=== PATIENT | male | born 1965 | race Caucasian/White ===

== ENCOUNTER 2019-12-10 13:43 | Emergency (ER) | payer SELFPAY ==
[~2019-12-10] VITALS: Ht 167.6 cm; Wt 83.9 kg
[2019-12-10 14:10] VITALS: BP 111/66
[2019-12-10] MEDS ORDERED: ORPHENADRINE CITRATE 60 MG/2 ML VIAL. IM ONE (14:15)
[2019-12-10] MEDS ORDERED: KETOROLAC 60 MG/2 ML VIAL. IM ONE (14:15)
--- NOTE | 2019-12-10 14:19 | PHYS DOC ---
Adult General Chief Complaint Chief Complaint: BACK PAIN OR INJURY [facility] HPI Patient is a 54-year-old male who presents with complaint of acute low back pain with injury occurred yesterday after bending over and picking up a log. Patient states he felt something pop in his back and since that time he has had pain that radiates down into his right buttock and into the right leg, down to the knee. Patient denies any loss of bowel or bladder control.[] Review of Systems Review of Systems Constitutional: Denies fever or chills [] Respiratory: Denies cough or shortness of breath [] Cardiovascular: No additional information not addressed in HPI [] GI: Denies abdominal pain, nausea or diarrhea [] Musculoskeletal: Complains of low back pain [] Integument: Denies rash or skin lesions [] Neurologic: Denies headache, focal weakness or sensory changes [] Current Medications Current Medications Current Medications Medications (Trade) Dose Ordered Sig/Roxy Start Time Stop Time Status Last Admin Dose Admin Ketorolac Tromethamine (Toradol Im) 60 mg 1X ONCE 12/10/19 14:15 12/10/19 14:16 UNV Orphenadrine Citrate (Norflex) 60 mg 1X ONCE 12/10/19 14:15 12/10/19 14:16 UNV Physical Exam Physical Exam Constitutional: Well developed, well nourished, no acute distress, non-toxic appearance. [] Cardiovascular:Heart rate regular rhythm, no murmur [] Lungs & Thorax: Bilateral breath sounds clear to auscultation [] Abdomen: Bowel sounds normal, soft, no tenderness, no masses, no pulsatile masses. [] Skin: Warm, dry, no erythema, no rash. [] Back: There is tenderness to palpation in the lumbar paraspinal musculature, into the right buttock. [] Extremities: No tenderness, no cyanosis, no clubbing, ROM intact, no edema. [] Neurologic: Alert and oriented X 3, no focal deficits noted. Patellar reflexes were tested and left patellar reflex is normal at 2 out of 4 with right patellar reflex diminished at 1 out of 4. [] EKG EKG [] Radiology/Procedures Radiology/Procedures [] Impressions: PROCEDURE: LUMBAR SPINE 2-3V LUMBAR SPINE 2-3V Clinical Indication: Lower back pain, post injury. Comparison: None. Findings: The sacroiliac joints are symmetric. The mineralization is normal. There is bilateral L5 spondylolysis. Mild grade 1 anterolisthesis of L5 on S1. Mild grade 1 retrolisthesis of L4 on L5. There is minimal degenerative endplate spurring most apparent at L4/L5 and L5/S1. Mild disc space narrowing of L5/1. Other disc spaces are maintained. No acute compression fracture is identified. IMPRESSION: 1. Bilateral L5 spondylolysis. Alignment as above. 2. No acute compression fracture. Electronically signed by: Octavio Olivares MD (12/10/2019 2:38 PM) [id number] Course & Med Decision Making Course & Med Decision Making Pertinent Labs and Imaging studies reviewed. (See chart for details) [] Dragon Disclaimer Dragon Disclaimer This electronic medical record was generated, in whole or in part, using a voice recognition dictation system. Departure Departure: Impression: Primary Impression: Acute lumbosacral myofascial strain Additional Impression: Spondylolysis of lumbosacral region Disposition: 01 HOME, SELF-CARE Condition: STABLE Referrals: PCP,MONICO (PCP) Patient Instructions: Lumbosacral Strain, Sciatica, Spondylolysis with Rehab- [facility] Additional Instructions: Establish care with a primary care provider or orthopedist for follow-up on low back injury. Scripts Orphenadrine Citrate (ORPHENADRINE CITRATE) 100 Mg Tablet.er 1 TAB PO BID PRN for MUSCLE SPASMS, #14 TAB Prov: CLYDE MAYORGA Jr. DO 12/10/19 Hydrocodone Bit/Acetaminophen (NORCO 5-325 TABLET) 1 Each Tablet 1 TAB PO PRN Q6HRS PRN for PAIN, #12 TAB 0 Refills Prov: CLYDE MAYORGA Jr. DO 12/10/19 Diclofenac Sodium (DICLOFENAC SODIUM) 50 Mg Tablet.dr 1 TAB PO BID PRN for PAIN, #20 TAB Prov: CLYDE MAYORGA Jr. DO 12/10/19 Problem Qualifiers Primary Impression: Acute lumbosacral myofascial strain Encounter type: initial encounter Qualified Codes: S39.012A - Strain of muscle, fascia and tendon of lower back, initial encounter CLYDE MAYORGA Jr. DO Dec 10, 2019 14:19
--- NOTE | 2019-12-10 14:41 | RAD ---
LUMBAR SPINE 2-3V Clinical Indication: Lower back pain, post injury. Comparison: None. Findings: The sacroiliac joints are symmetric. The mineralization is normal. There is bilateral L5 spondylolysis. Mild grade 1 anterolisthesis of L5 on S1. Mild grade 1 retrolisthesis of L4 on L5. There is minimal degenerative endplate spurring most apparent at L4/L5 and L5/S1. Mild disc space narrowing of L5/1. Other disc spaces are maintained. No acute compression fracture is identified. IMPRESSION: 1. Bilateral L5 spondylolysis. Alignment as above. 2. No acute compression fracture. Electronically signed by: Octavio Olivares MD (12/10/2019 2:38 PM) [id number]
[2019-12-10] MEDS ORDERED: ORPH-16 PO (14:48)
[2019-12-10] MEDS ORDERED: DICL50TA4 PO (14:48)
[2019-12-10] MEDS ORDERED: HYDR-3165 PO (14:48)
== END 2019-12-10 15:00 | disposition home or self-care (01) ==
LOC: ER 13:43
DX: S39.012A Strain of muscle, fascia and tendon of lower back, initial encounter (principal); M43.07 Spondylolysis, lumbosacral region; X50.9XXA Other and unspecified overexertion or strenuous movements or postures, initial encounter; Y93.89 Activity, other specified; Y92.89 Other specified places as the place of occurrence of the external cause; Y99.8 Other external cause status
CPT/HCPCS: 72100; 96372; 99284; J1885; J2360

== ENCOUNTER 2019-12-28 02:22 | Emergency (ER) | payer SELFPAY ==
[~2019-12-28] VITALS: Ht 167.6 cm; Wt 86.6 kg
[~2019-12-28 02:22] MED LIST: DICL50TA4 PO; HYDR-3165 PO; ORPH-16 PO
[2019-12-28] MEDS ORDERED: IV NORMAL SALINE 1,000ML 1,000 ML IV ONE (03:00)
[2019-12-28] MEDS ORDERED: KETOROLAC 15 MG/ML VIAL. IVP ONE (03:00)
[2019-12-28 03:08] LABS: BASO % 1 % (0-3); EOS # 0.1 x10^3/uL (0.0-0.7); EOS % 1 % (0-3); HEMATOCRIT 43.4 % (39.0-53.0); HEMOGLOBIN 14.6 g/dL (13.0-17.5); LYMPH # 1.4 x10^3/uL (1.0-4.8); LYMPH % 14 % (24-48); MEAN CORPUSCULAR HEMOGLOBIN 30 pg (25-35); MEAN CORPUSCULAR HGB CONC 34 g/dL (31-37); MEAN CORPUSCULAR VOLUME 89 fL (79-100); MONO # 0.7 x10^3/uL (0.0-1.1); MONO % 8 % (0-9); NEUT # 7.4 x10^3uL (1.8-7.7); NEUT % 77 % (31-73); PLATELET COUNT 264 x10^3/uL (140-400); RED BLOOD COUNT 4.88 x10^6/uL (4.30-5.70); RED CELL DISTRIBUTION WIDTH 14.4 % (11.5-14.5); WHITE BLOOD COUNT 9.6 x10^3/uL (4.0-11.0)
--- NOTE | 2019-12-28 03:12 | PHYS DOC ---
Past History Past Medical History: Seizure Additional Past Medical Histor: Chronic back pain, Drug abuse Past Surgical History: No Surgical History Smoking: Cigarettes Alcohol Use: None Drug Use: None Adult General Chief Complaint Chief Complaint: SEIZURE HPI HPI 54 year old male presents with concern he had a seizure tonight. Reports history of seizures but reports he is currently out of his medication for seiz ures. Reports he is not sure what the medication is called. Reports low back pain. Reports he had been seen here for his back pain 2 weeks ago. Reports he awoke on the floor and "knew something is wrong". Also reports his legs can't stay still especially at night and asked can that be "restless leg syndrome"? Denies loss of bowel/bladder. Denies tongue biting. 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 Reports he needs some pain medication. [facility] report obtained and noted patient chronically on Suboxone with last prescription in Oct 2019. 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 Patient reports he recently moved here because he is building a house. Patient reports he is currently living in a half way house while his house if being built. 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 Review of Systems Review of Systems Constitutional: Denies fever or chills Eyes: Denies redness or eye pain HENT: Denies nasal congestion or sore throat Respiratory: Denies cough or shortness of breath Cardiovascular: Denies chest pain or palpitations GI: Denies abdominal pain, nausea, or vomiting : Denies dysuria or hematuria Musculoskeletal: Reports back pain; denies joint pain Integument: Denies rash or skin lesions Neurologic: Denies focal weakness or sensory changes; reports seizure and headache; denies loss of bowel or bladder Complete systems were reviewed and found to be within normal limits, except as documented in this note. Current Medications Current Medications Current Medications Medications (Trade) Dose Ordered Sig/Roxy Start Time Stop Time Status Last Admin Dose Admin Ketorolac Tromethamine (Toradol 15mg Vial) 15 mg 1X ONCE 12/28/19 03:00 12/28/19 03:01 UNV Lorazepam (Ativan Inj) 0.5 mg 1X ONCE 12/28/19 03:00 12/28/19 03:01 UNV Sodium Chloride 1,000 ml @ 1,000 mls/hr 1X ONCE 12/28/19 03:00 12/28/19 03:59 UNV Allergies Allergies Allergies Coded Allergies Type Severity Reaction Last Updated Verified No Known Allergies Allergy Unknown 12/10/19 Yes Physical Exam Physical Exam Constitutional: Well developed, well nourished, restless, uncomfortable appearance HENT: Normocephalic, atraumatic, oropharynx moist Eyes: PERRL, EOMI, conjunctiva normal, no discharge, no nystagmus Neck: Normal range of motion, no midline tenderness, supple Cardiovascular: Heart rate normal, regular rhythm Lungs & Thorax: Bilateral breath sounds clear to auscultation, no wheezing Abdomen: Soft, no tenderness; pelvis stable and nontender Skin: Warm, dry, no erythema, no rash Back: Low lumbar paraspinal tenderness, no CVA tenderness Extremities: No tenderness, ROM intact, no edema Neurologic: Alert and oriented X 3, normal motor function, normal sensory function, no focal deficits noted, patient continually shaking lower extremities Psychologic: Affect anxious, judgment normal Current Patient Data Vital Signs Vital Signs Date Time Temp Pulse Resp B/P (MAP) Pulse Ox O2 Delivery O2 Flow Rate FiO2 12/28/19 02:27 98.1 92 18 142/80 (100) 98 Room Air Lab Results Laboratory Tests Test 12/28/19 02:40 White Blood Count 9.6 x10^3/uL (4.0-11.0) Red Blood Count 4.88 x10^6/uL (4.30-5.70) Hemoglobin 14.6 g/dL (13.0-17.5) Hematocrit 43.4 % (39.0-53.0) Mean Corpuscular Volume 89 fL (79-100) Mean Corpuscular Hemoglobin 30 pg (25-35) Mean Corpuscular Hemoglobin Concent 34 g/dL (31-37) Red Cell Distribution Width 14.4 % (11.5-14.5) Platelet Count 264 x10^3/uL (140-400) Neutrophils (%) (Auto) 77 % (31-73) H Lymphocytes (%) (Auto) 14 % (24-48) L Monocytes (%) (Auto) 8 % (0-9) Eosinophils (%) (Auto) 1 % (0-3) Basophils (%) (Auto) 1 % (0-3) Neutrophils # (Auto) 7.4 x10^3uL (1.8-7.7) Lymphocytes # (Auto) 1.4 x10^3/uL (1.0-4.8) Monocytes # (Auto) 0.7 x10^3/uL (0.0-1.1) Eosinophils # (Auto) 0.1 x10^3/uL (0.0-0.7) Basophils # (Auto) 0.0 x10^3/uL (0.0-0.2) EKG EKG @0258 NSR at 97bpm, NO ST elevation, baseline artifact noted Radiology/Procedures Radiology/Procedures PROCEDURE: CT HEAD WO CONTRAST EXAM: CT HEAD WITHOUT CONTRAST. HISTORY: Seizures. TECHNIQUE: Computed tomography of the head was performed without intravenous contrast. One or more of the following individualized dose reduction techniques were utilized for this examination: 1. Automated exposure control. 2. Adjustment of the mA and/or kV according to patient size. 3. Use of iterative reconstruction technique. COMPARISON: None. FINDINGS: There is no intracranial hemorrhage. Oswald-white differentiation is preserved. The ventricles are normal in size and position. There is mild mucosal thickening throughout the paranasal sinuses, most notable within the right ethmoid air cells. The orbits are unremarkable. The temporal bones are unremarkable. The calvarium reveals no suspicious lesions. IMPRESSION: 1. No acute intracranial findings. MRI is more sensitive if there is persistent concern. Electronically signed by: Dane Farrell MD (12/28/2019 3:31 AM) [facility] Course & Med Decision Making Course & Med Decision Making Pertinent Labs and Imaging studies reviewed. (See chart for details) Patient presents with report of seizure this evening which was unwitnessed. No loss of bowel or bladder no tongue injury. Patient unsure what medication he is supposed to be taking. Patient also complaining of chronic low back pain. Patient continually changing his story. History of Suboxone use. Patient had received hydrocodone on recent visit from 12/10/2019 which was filled on 12/22/2019 per [facility] report. Patient given Ativan and ketorolac for restlessness and back pain. CT head without acute process. Labs obtained and posted to chart. WBC, CPK, and lactic acid also within normal limits. Likelihood of tonic-clonic seizure is very low. Patient continually wanting pain medication for his back despite being asleep and holding legs up to chest in position upon discussion of his results. Of note: patient also found to have UDS positive for opiates, amphetamines, and cocaine. Patient stable for discharge with outpatient follow-up with PCP. Discussed findings and plan with patient, who acknowledges understanding and agreement. Dragon Disclaimer Dragon Disclaimer This electronic medical record was generated, in whole or in part, using a voice recognition dictation system. Departure Departure: Impression: Primary Impression: Seizure Additional Impression: Chronic back pain Disposition: HOME, SELF-CARE Condition: STABLE Referrals: PCP,UNKNOWN (PCP) Patient Instructions: Chronic Back Pain, Seizure, Adult, [id number] Scripts Diazepam (VALIUM) 2 Mg Tablet 2 MG PO BID PRN for MUSCLE SPASMS, #8 TAB Prov: PENELOPE MILLAN DO 12/28/19 Problem Qualifiers Additional Impression: Chronic back pain Back pain location: low back pain Back pain laterality: bilateral Sciatica presence: without sciatica Qualified Codes: M54.5 - Low back pain; G89.29 - Other chronic pain PENELOPE MILLAN DO Dec 28, 2019 03:12
[2019-12-28 03:23] LABS: CREATININE 0.8 mg/dL (0.7-1.3); POTASSIUM 3.7 mmol/L (3.5-5.1)
[2019-12-28 03:25] LABS: BARBITURATES NEG (NEG); BENZODIAZEPINES NEG (NEG); CANNABINOIDS NEG (NEG); COCAINE POS (NEG); METHADONE NEG (NEG); OPIATES POS (NEG); PHENCYCLIDINE NEG (NEG)
[2019-12-28 03:27] LABS: AMPHETAMINE/METHAMPHETAMINE POS (NEG)
--- NOTE | 2019-12-28 03:34 | RAD ---
EXAM: CT HEAD WITHOUT CONTRAST. HISTORY: Seizures. TECHNIQUE: Computed tomography of the head was performed without intravenous contrast. One or more of the following individualized dose reduction techniques were utilized for this examination: 1. Automated exposure control. 2. Adjustment of the mA and/or kV according to patient size. 3. Use of iterative reconstruction technique. COMPARISON: None. FINDINGS: There is no intracranial hemorrhage. Oswald-white differentiation is preserved. The ventricles are normal in size and position. There is mild mucosal thickening throughout the paranasal sinuses, most notable within the right ethmoid air cells. The orbits are unremarkable. The temporal bones are unremarkable. The calvarium reveals no suspicious lesions. IMPRESSION: 1. No acute intracranial findings. MRI is more sensitive if there is persistent concern. Electronically signed by: Dane Farrell MD (12/28/2019 3:31 AM) [facility]
[2019-12-28 03:37] LABS: ALBUMIN 3.4 g/dL (3.4-5.0); MAGNESIUM 1.8 mg/dL (1.8-2.4); TOTAL BILIRUBIN 0.3 mg/dL (0.2-1.0); TOTAL PROTEIN 6.7 g/dL (6.4-8.2)
[2019-12-28] MEDS ORDERED: DIAZ2TAB PO (03:55)
[2019-12-28 03:58] VITALS: BP 137/78
--- NOTE | 2019-12-28 12:13 | EKG ---
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
== END 2019-12-28 04:02 | disposition home or self-care (01) ==
LOC: ER 02:22
DX: R56.9 Unspecified convulsions (principal); M54.5 Low back pain; G89.29 Other chronic pain; R51 Headache; F17.210 Nicotine dependence, cigarettes, uncomplicated
CPT/HCPCS: 36415; 70450; 80053; 80307; 82550; 83605; 83735; 85025; 93005; 96374; 96375; 99285; J1885; J2060; J7030

== ENCOUNTER 2020-01-27 17:39 | Emergency (ER) | payer SELFPAY ==
[~2020-01-27 17:39] MED LIST changes: +DIAZ2TAB PO
== END 2020-01-27 18:05 | disposition home or self-care (01) ==
LOC: ER 17:39
DX: F32.9 Major depressive disorder, single episode, unspecified (principal); Z53.21 Procedure and treatment not carried out due to patient leaving prior to being seen by health care provider